=== PATIENT | male | born 1955 | race Caucasian/White ===

== ENCOUNTER 2016-07-24 15:23 | Emergency (ER) | payer SELFPAY ==
[~2016-07-24] VITALS: Ht 185.4 cm; Wt 109.0 kg
[2016-07-24] MEDS ORDERED: METF500T4 PO (15:31)
[2016-07-24] MEDS ORDERED: LISI10TA PO (15:31)
[2016-07-24] MEDS ORDERED: SODIUM CHLORIDE 0.9% 1,000 ML IV ONE (15:50)
[2016-07-24] MEDS ORDERED: ONDANSETRON HCL 4 MG/2 ML VIAL IVP ONE (17:00)
[2016-07-24] MEDS ORDERED: HYDROmorphone 2 MG/ML SYRINGE IVP ONE (17:00)
[2016-07-24] MEDS ORDERED: CeFAZolin 1 GM/DEXTROSE 50 ML IV ONE (17:00)
[2016-07-24 17:56] VITALS: BP 196/139
== END 2016-07-24 17:56 | disposition short-term general hospital (02) ==
LOC: EMS 15:26
DX: S61.412A Laceration without foreign body of left hand, initial encounter (principal); E11.9 Type 2 diabetes mellitus without complications; I11.9 Hypertensive heart disease without heart failure; Z88.5 Allergy status to narcotic agent; W54.0XXA Bitten by dog, initial encounter; Y93.89 Activity, other specified; Y92.89 Other specified places as the place of occurrence of the external cause; Y99.8 Other external cause status
CPT/HCPCS: 96365; 96375; 99285; J0690; J1170; J2405; J7030; 99284